=== PATIENT | male | born 1990 | race Caucasian/White ===

== ENCOUNTER 2021-06-13 16:41 | Emergency (ER) | payer SELFPAY ==
[2021-06-13 16:52] VITALS: BP 138/100; PULSE 94; O2SAT 98; BMI 41.9
[2021-06-13 17:43] VITALS: BP 149/86; PULSE 127; RESP 15; TEMP 36.4; O2SAT 94
--- NOTE | 2021-06-13 17:59 | ED_ITS ---
HPI - Alcohol General Chief Complaint: ETOH/Substance Use Stated Complaint: etoh Time Seen by Provider: 06/13/21 16:47 Source: patient and EMS Mode of arrival: EMS Limitations: no limitations History of Present Illness HPI narrative: 30-year-old male here brought in by EMS for a medical evaluation. Patient tells me he was at his grandmother's earlier today. He went to the bar after and had 2 shots in 3 true lease in the span of the day. Patient tells me that while he was sitting on a barstool he had a cramp in the left side of his abdomen. The pain was very severe and caused him to fall to the ground. He tells me that EMS and PD were called. He had his firearm on him and this was taken by PD and it was recommended he come to the ER for further evauation. There was initially concern the patient may have had an episode of vomiting blood but he does nice this. He denies any abdominal pain, nausea, vomiting, diarrhea, blood in the stool or vomit. He feels well. He tells me he did have several alcoholic beverages today as well as 2 mg of Klonopin but denies any additional substance use. He denies any suicidal thoughts. Patient tells me that for the last 2 and half weeks he has been doing a keto diet and he has had some intermittent muscle cramps which he associates with low electrolyte levels. Related Data Allergies Allergy/AdvReac Type Severity Reaction Status Date / Time No Known Allergies Allergy Verified 06/13/21 17:22 Review of Systems Review of Systems: Yes all other systems are reviewed and are negative Constitutional: Constitutional: Reports no additional constitutional c omplaints, Denies body ache(s), Denies chills, Denies fever(s), Denies headache(s) and Denies weakness Eyes: Eyes: Reports no additional eye complaints and Denies change in vision ENT: Reports system reviewed and no additional complaints, except as documented, Denies dizziness, Denies headache(s), Denies nasal congestion, Denies nasal discharge and Denies neck pain Cardiovascular: Cardiovascular: Reports no additional cardiovascular complaints, Denies chest pain, Denies leg edema and Denies dyspnea Respiratory: Respiratory: Reports no additional respiratory complaints, Denies cough and Denies dyspnea Gastrointestinal: Gastrointestinal: Reports no additional gastrointestinal complaints, Denies abdominal pain, Denies diarrhea, Denies nausea and Denies vomiting Genitourinary: Genitourinary: Denies urinary incontinence Musculoskeletal: Musculoskeletal: Reports no additional musculoskeletal complaints, Denies back pain, Denies arthralgias, Denies joint swelling, Reports muscle cramps, Denies neck pain, Denies numbness and Denies tingling Integumentary/Breasts: Skin/Breast: Reports system reviewed and no additional complaints, except as docu and Denies rash Neurologic: Reports system reviewed and no additional complaints, except as documented, Denies dizziness, Denies headache(s), Denies numbness, Denies tingling and Denies weakness PMFSH Past Medical History Attestation statement: The following information was validated with the patient. Source: old records reviewed and nursing notes reviewed Social History Social History Advance Directives: No Advance Directives Information Provided: No Physical Exam ED Vital Signs: Vital Signs - 24 hr 06/13/21 17:43 06/13/21 19:03 Temperature 97.5 F Pulse Rate 127 H 82 Respiratory Rate 15 Blood Pressure 149/86 H Pulse Oximetry 94 BMI result Body Mass Index 41.9 Const General: cooperative, healthy appearing, comfortable and no acute distress Orientation/consciousness: patient oriented x3 Limitations: no limitations HENMT Head: Yes normal to inspection Ears: hearing grossly normal bilaterally and TM's normal bilaterally General nose exam: Normal external nose present Face and sinus: Yes normal facial exam Mouth: Normal oral and palatal mucosa present Throat: Yes posterior oropharynx normal and Yes tonsils normal Eyes General: appearance normal, both eyes and all related structures Pupils: Equal, round and reactive pupils present Neck Neck: Yes normal visual inspection, Yes full ROM, Yes no lymphadenopathy and Yes no meningeal signs Chest Chest palpation & inspection: normal inspection of the chest Resp Effort & Inspection: normal respiratory effort Auscultation: clear to auscultation bilaterally Cardio Rate: regular rate Rhythm: regular rhythm Peripheral pulses: Peripheral pulses 2+ throughout GI Inspection: Yes normal to inspection Palpation (GI): Soft to palpation and nontender General: Yes no CVA tenderness Back/Spine/Pelvis Back: no CVA tenderness Thoracic/Lumbar Spine: thoracic and lumbar spine normal to inspection Skin General skin exam: no rashes or lesions noted Neuro General: patient oriented x3, moves all extremities and no meningeal signs Cranial nerves: Yes CN's II-XII intact bilaterally, Yes Equal, round and reactive pupils present, Yes Bilaterally intact EOM present, Yes Nystagmus not present, Yes Normal facial strength present and Yes Midline tongue present Cognition (Neuro): normal cognition Gait exam (Neuro): Normal gait present Motor exam (neuro): 5/5 motor strength present throughout Sensory Exam: Normal double simultaneous stimulation for sensation Extrem General: Yes normal to inspection, Yes no pedal edema and Yes no calf tenderness Course Course Course Narrative: 30yo male here for medical screening after having a fall at the bar just [employer]. No reports of injury from the fall. No head strike or loss of conscious. Normal neurological exam. Vitals are stable. Patient does report some intermittent muscle cramps over the last 2 weeks which he relates to starting a keto diet. Will check labs to include CPK and electrolytes. Patient is reports having several drinks today. He is alert and oriented. His vitals are stable. He is up to the bathroom independently with a steady gait. 1910-labs show mildly elevated CPK otherwise unremarkable. Consistent with mild dehydration likely secondary to recent dietary changes. Patient orally rehydrate home. Patient has a sober ride home and will be discharged in their care. Reviewed worrisome signs and symptoms of when to return to the emergency department. Comfortable discharge home. [facility] - Alcohol Medical Records Attestation: I reviewed the patient's medical records. Lab Data Attestation: I reviewed the patient's lab results. Result diagrams: 06/13/21 17:40 Labs: Lab Results 06/13/21 Range/Units 17:40 Sodium 142 (135-145) mmol/L Potassium 4.4 (3.3-5.1) mmol/L Chloride 102 (96-108) mmol/L Carbon Dioxide 24 (22-29) mmol/L Anion Gap 20 (12-20) BUN 14 (9-16) mg/dL Creatinine 1.23 (0.5-1.4) mg/dL Estim Creat Clear Calc 113.1 Estimated GFR > 60 Random Glucose 92 (60-115) mg/dL Calcium 10.1 (8.4-10.2) mg/dL Magnesium 2.4 (1.6-2.6) mg/dL Total Creatine Kinase 307 H (38-174) U/L Discharge Plan Discharge Clinical Impression: Cramp in muscle Patient Disposition: Home, Self-Care Instructions: Muscle Cramp (ED) Additional Instructions: Your lab work shows that your CPK is mildly elevated. This can happen if you are slightly dehydrated. You may orally rehydrate with fluids like Gatorade or Powerade. Follow-up with your primary care doctor as needed Referrals: Physician,Cornel J [Primary Care Provider] - 1 week
[2021-06-13 18:29] LABS: Anion Gap 20 (12-20); Blood Urea Nitrogen 14 mg/dL (9-16); Calcium 10.1 mg/dL (8.4-10.2); Carbon Dioxide 24 mmol/L (22-29); Chloride 102 mmol/L (96-108); Creatinine Clr Calc Pharmacy 113.1; Estimated Glomerular Filt Rate > 60; Glucose Random 92 mg/dL (60-115); Magnesium 2.4 mg/dL (1.6-2.6); Potassium 4.4 mmol/L (3.3-5.1); Sodium 142 mmol/L (135-145)
[2021-06-13 19:03] VITALS: PULSE 82
--- NOTE | 2021-06-13 20:29 | PC.NURSE ---
I assumed care of this pt at 1900, at which time the pt was standing in his room fully dressed awaiting DC papers. He verbalized an understanding of all DC orders and ambulated out of the ED independently and with steady gait
== END 2021-06-13 20:31 | disposition home or self-care (01) ==
PROVIDERS: Nurse Practitioner Family; Emergency Provider Emergency Medicine Emergency Medical Services
DX: R25.2 Cramp and spasm (principal)
CPT/HCPCS: 36415; 80048; 82550; 83735; 99283